=== PATIENT | female | born 1995 | race Hispanic/Latino ===

== ENCOUNTER 2022-10-04 12:53 | Inpatient (IN) | payer BC, MEDICAID ==
[~2022-10-04] VITALS: Ht 167.6 cm; Wt 77.9 kg
[2022-10-04 13:29] LABS: APPEARANCE,URINE CLEAR (CLEAR); BILIRUBIN,URINE NEGATIVE (NEGATIVE); COLOR,URINE COLORLESS (YELLOW); GLUCOSE, URINE (UA) NEGATIVE (NEGATIVE); KETONES,URINE NEGATIVE (NEGATIVE); LEUKOCYTE ESTERASE ,URINE NEGATIVE Leu/uL (NEGATIVE); NITRATE,URINE NEGATIVE (NEGATIVE); PROTEIN,URINE NEGATIVE (NEGATIVE); UROBILINOGEN,URINE 0.2 mg/dL (0.2-1.0)
[2022-10-04 13:30] LABS: RBC,URINE 0-1 /HPF (0-1); WBC,URINE 0-1 /HPF (0-1)
[2022-10-04 13:32] LABS: BASOPHILS % (AUTO) 0.5 % (0.0-5.0); EOSINOPHILS % (AUTO) 0.1 % (0.0-8.0); HEMATOCRIT 43.3 % (36-48); LYMPHOCYTES % (AUTO) 13.8 % (21.0-51.0); MEAN CORPUSCULAR HEMOGLOBIN 28.4 pg (27.0-33.0); MEAN CORPUSCULAR HGB CONC 33.3 g/dL (32.0-36.0); MEAN CORPUSCULAR VOLUME 85.4 fL (79-99); MONOCYTES % (AUTO) 3.9 % (3.0-13.0); NEUTROPHILS % (AUTO) 81.5 % (40.0-77.0); PLATELET COUNT (AUTO) 383 K/uL (130-400); RED BLOOD CELL COUNT(AUTO) 5.07 MIL/uL (4.00-5.50); RED CELL DISTRIBUTION WIDTH 12.8 % (11.0-15.5); WHITE BLOOD COUNT (AUTO) 8.5 K/uL (4.8-10.8)
[2022-10-04 13:43] LABS: CARBON DIOXIDE 24 mmol/L (21-32); CHLORIDE 105 mmol/L (101-111); CREATININE 0.9 mg/dL (0.5-1.5); GLOMERULAR FILTR. RATE CALC 89 mL/min (>90); GLUCOSE,RANDOM 110 mg/dL (70-105); SODIUM SERUM 139 mmol/L (136-145); UREA NITROGEN, BLOOD 9 mg/dL (7-18)
[2022-10-04 13:54] LABS: ALANINE AMINOTRANSFERASE 28 U/L (12-78); ALBUMIN 3.8 g/dL (3.5-5.0); ASPARTATE AMINOTRANSFERASE 19 U/L (10-37); CREATINE KINASE, TOTAL 84 U/L (21-232); TOTAL PROTEIN, SERUM 7.7 g/dL (6.0-8.3)
[2022-10-04 13:55] LABS: SALICYLATE < 2.8 mg/dL (2.8-20.0)
[2022-10-04 13:56] LABS: ACETAMINOPHEN 149 mcg/mL (10-30)
[2022-10-04] MEDS ORDERED: PHARMACY COMMUNICATION MISC SCH (14:30)
[2022-10-04] MEDS ORDERED: WATER IV ONE ×4 (15:00→16:00)
[2022-10-04] MEDS ORDERED: ACETYLCYSTEINE IV ONE ×4 (15:00→16:00)
[2022-10-04] MEDS ORDERED: DEXTROSE 5% IV ONE ×4 (15:00→16:00)
[2022-10-04] MEDS ORDERED: ONDANSETRON 4MG INJ IV PRN (15:30)
[2022-10-04] MEDS ORDERED: LACTULOSE 20 GM/30 ML UDCUP PO PRN (15:30)
[2022-10-04] MEDS ORDERED: GUAIFENESIN-DM 200/20 MG 10 ML PO PRN (15:30)
[2022-10-04] MEDS ORDERED: MAG/ALUM/SIMETH 30 ML UDCUP PO PRN (15:30)
[2022-10-04] MEDS ORDERED: DIPHENHYDRAMINE HCL 25 MG CAPSULE PO PRN (15:30)
[2022-10-04 18:21] LABS: AMPHET/METH SCREEN,URINE NEGATIVE (NEGATIVE); BARBITURATE SCREEN, URINE NEGATIVE (NEGATIVE); BENZODIAZEPINES SCREEN,URINE NEGATIVE (NEGATIVE); CANNABINOID SCREEN,URINE NEGATIVE (NEGATIVE); COCAINE SCREEN,URINE NEGATIVE (NEGATIVE); OPIATE SCREEN,URINE NEGATIVE (NEGATIVE); PHENCYCLIDINE SCREEN,URINE NEGATIVE (NEGATIVE)
[2022-10-04 18:26] LABS: INR 0.93 (0.85-1.15); PROTHROMBIN TIME 10.3 SEC (9.6-11.6)
[2022-10-04 18:27] LABS: PARTIAL THROMBOPLASTIN TIME 30.2 SEC (26.3-35.5)
[2022-10-04] MEDS: DEXTROSE 5% IV SCH ×2 (20:43)
[2022-10-04] MEDS: ACETYLCYSTEINE IV SCH ×2 (20:43)
[2022-10-04] MEDS: WATER IV SCH ×2 (20:43)
[2022-10-04] MEDS: FAMOTIDINE 20MG VIAL IV SCH (20:47)
[2022-10-05] MEDS: FAMOTIDINE 20MG VIAL IV SCH ×2 (09:00→20:55)
[2022-10-05 09:12] LABS: BASOPHILS % (AUTO) 0.5 % (0.0-5.0); EOSINOPHILS % (AUTO) 0.6 % (0.0-8.0); HEMATOCRIT 40.8 % (36-48); LYMPHOCYTES % (AUTO) 16.2 % (21.0-51.0); MEAN CORPUSCULAR HEMOGLOBIN 28.5 pg (27.0-33.0); MEAN CORPUSCULAR HGB CONC 33.6 g/dL (32.0-36.0); MEAN CORPUSCULAR VOLUME 84.8 fL (79-99); MONOCYTES % (AUTO) 5.7 % (3.0-13.0); NEUTROPHILS % (AUTO) 76.6 % (40.0-77.0); PLATELET COUNT (AUTO) 337 K/uL (130-400); RED BLOOD CELL COUNT(AUTO) 4.81 MIL/uL (4.00-5.50); RED CELL DISTRIBUTION WIDTH 12.7 % (11.0-15.5); WHITE BLOOD COUNT (AUTO) 7.9 K/uL (4.8-10.8)
[2022-10-05 09:21] LABS: CARBON DIOXIDE 24 mmol/L (21-32); CHLORIDE 104 mmol/L (101-111); CREATININE 0.7 mg/dL (0.5-1.5); GLOMERULAR FILTR. RATE CALC 121 mL/min (>90); GLUCOSE,RANDOM 110 mg/dL (70-105); POTASSIUM 3.9 mmol/L (3.5-5.1); SODIUM SERUM 140 mmol/L (136-145); UREA NITROGEN, BLOOD 6 mg/dL (7-18)
[2022-10-05 09:25] LABS: ALANINE AMINOTRANSFERASE 26 U/L (12-78); ALBUMIN 3.1 g/dL (3.5-5.0); AMMONIA < 10 umol/L (11-32); ASPARTATE AMINOTRANSFERASE 15 U/L (10-37); TOTAL PROTEIN, SERUM 7.1 g/dL (6.0-8.3)
[2022-10-05 09:26] LABS: ACETAMINOPHEN < 1 mcg/mL (10-30)
[2022-10-05 09:27] LABS: INR 0.97 (0.85-1.15); PROTHROMBIN TIME 11.3 SEC (9.6-11.6)
[2022-10-05 09:28] LABS: PARTIAL THROMBOPLASTIN TIME 29.5 SEC (26.3-35.5)
[2022-10-05] MEDS: WATER IV SCH ×2 (12:00)
[2022-10-05] MEDS: ACETYLCYSTEINE IV SCH ×2 (12:00)
[2022-10-05] MEDS: DEXTROSE 5% IV SCH ×2 (12:00)
[2022-10-05 13:05] VITALS: BP 126/78; PULSE 60; RESP 16
[2022-10-05] MEDS ORDERED: 0.9%NACL 1000ML 1,000 ML IV SCH (14:00)
[2022-10-05 16:00] VITALS: BP 133/60; PULSE 59; RESP 18
[2022-10-05 20:00] VITALS: BP 115/68; PULSE 68; RESP 20
[2022-10-06] VITALS: BP 132/73; PULSE 78; RESP 20
[2022-10-06 04:00] VITALS: BP 133/77; PULSE 80; RESP 20
[2022-10-06 05:21] LABS: BASOPHILS % (AUTO) 0.7 % (0.0-5.0); EOSINOPHILS % (AUTO) 2.4 % (0.0-8.0); HEMATOCRIT 40.3 % (36-48); LYMPHOCYTES % (AUTO) 27.8 % (21.0-51.0); MEAN CORPUSCULAR HEMOGLOBIN 28.7 pg (27.0-33.0); MEAN CORPUSCULAR HGB CONC 33.3 g/dL (32.0-36.0); MEAN CORPUSCULAR VOLUME 86.3 fL (79-99); NEUTROPHILS % (AUTO) 61.8 % (40.0-77.0); PLATELET COUNT (AUTO) 323 K/uL (130-400); RED BLOOD CELL COUNT(AUTO) 4.67 MIL/uL (4.00-5.50); RED CELL DISTRIBUTION WIDTH 12.8 % (11.0-15.5); WHITE BLOOD COUNT (AUTO) 7.4 K/uL (4.8-10.8)
[2022-10-06 05:41] LABS: ALBUMIN 3.1 g/dL (3.5-5.0); CREATININE 0.9 mg/dL (0.5-1.5); MAGNESIUM 1.9 mg/dL (1.80-2.40); TOTAL PROTEIN, SERUM 6.8 g/dL (6.0-8.3)
[2022-10-06] MEDS ORDERED: MAGNESIUM 2GM PREMIX 50ML 50 ML IV PRN (07:00)
[2022-10-06] MEDS ORDERED: KETOROLAC 30MG VIAL (30MG/ML) IVP ONE (07:00)
[2022-10-06 08:00] VITALS: BP 128/67; PULSE 59; RESP 17
[2022-10-06] MEDS: FAMOTIDINE 20MG VIAL IV SCH (08:56)
[2022-10-06 11:57] VITALS: BP 129/72; PULSE 64; RESP 17
== END 2022-10-06 17:25 | disposition home or self-care (01) | DRG 918 ==
LOC: EDH 12:53 → EDHIP 15:06 → 4DH 10-05 13:05
PROVIDERS: ADMIT Hospitalist; ATTEND Hospitalist
DX: T39.1X2A Poisoning by 4-Aminophenol derivatives, intentional self-harm, initial encounter (principal); F32.A Depression, unspecified; F41.9 Anxiety disorder, unspecified; Z63.0 Problems in relationship with spouse or partner; Y92.89 Other specified places as the place of occurrence of the external cause
CPT/HCPCS: 36415; 71045; 80053; 80305; 81001; 82140; 82550; 83605; 83735; 84703; 85025; 85610; 85730; 93005; G0378; G0481; J0132; J1885; J3475; J3490; J7060; J7070

== ENCOUNTER 2023-03-27 11:05 | Emergency (ER) | payer BC, MEDICAID ==
[~2023-03-27] VITALS: Ht 167.6 cm; Wt 80.7 kg
[2023-03-27 12:03] LABS: RAPID GROUP A STREP negative (NEGATIVE)
[2023-03-27 12:07] LABS: SARS-CoV-2, RNA, NAAT NEGATIVE SARS CoV-2 (NEGATIVE)
[2023-03-27 12:13] LABS: INFLUENZA TYPE A Negative For Type A (NEGATIVE); INFLUENZA TYPE B Negative For Type B (NEGATIVE)
[2023-03-27] MEDS ORDERED: ONDANSETRON 4MG INJ IVP ONE (14:30)
[2023-03-27] MEDS ORDERED: 0.9%NACL 1000ML 1,000 ML IV ONE (14:30)
[2023-03-27] MEDS ORDERED: ACETAMINOPHEN 500 MG TABLET PO ONE (14:30)
[2023-03-27 14:58] LABS: APPEARANCE,URINE CLEAR (CLEAR); BILIRUBIN,URINE NEGATIVE (NEGATIVE); COLOR,URINE LIGHT-YELLOW (YELLOW); GLUCOSE, URINE (UA) NEGATIVE (NEGATIVE); KETONES,URINE NEGATIVE (NEGATIVE); LEUKOCYTE ESTERASE ,URINE NEGATIVE Leu/uL (NEGATIVE); NITRATE,URINE NEGATIVE (NEGATIVE); OCCULT BLOOD,URINE NEGATIVE (NEGATIVE); PH,URINE 5.5 (5.0-8.0); PROTEIN,URINE 10 mg/dL (NEGATIVE); UROBILINOGEN,URINE 0.2 mg/dL (0.2-1.0)
[2023-03-27 14:59] LABS: ADD UA MICROSCOPIC YES
[2023-03-27 15:00] LABS: BACTERIA,URINE RARE /HPF (None Seen); HCG,QUALITATIVE URINE NEGATIVE (NEGATIVE); MUCUS,URINE RARE LPF (None Seen); SQUAMOUS EPITHELIAL CELL,UR RARE /HPF (0-2)
[2023-03-27 15:15] LABS: BASOPHILS # (AUTO) 0.02 K/uL (0.00-0.20); BASOPHILS % (AUTO) 0.2 % (0.0-5.0); EOSINOPHILS # (AUTO) 0.02 K/uL (0.00-0.70); EOSINOPHILS % (AUTO) 0.2 % (0.0-8.0); HEMATOCRIT 43.3 % (36-48); IMMATURE GRANULOCYTE ABSOLUTE 0.03 K/uL (0-1); LYMPHOCYTES % (AUTO) 9.6 % (21.0-51.0); MEAN CORPUSCULAR HEMOGLOBIN 28.2 pg (27.0-33.0); MEAN CORPUSCULAR HGB CONC 33.7 g/dL (32.0-36.0); MEAN CORPUSCULAR VOLUME 83.6 fL (79-99); MONOCYTES # (AUTO) 0.6 K/uL (0.1-1.0); MONOCYTES % (AUTO) 5.8 % (3.0-13.0); NEUTROPHILS # (AUTO) 8.5 K/uL (1.8-7.7); NEUTROPHILS % (AUTO) 83.9 % (40.0-77.0); PLATELET COUNT (AUTO) 322 K/uL (130-400); RED BLOOD CELL COUNT(AUTO) 5.18 MIL/uL (4.00-5.50); RED CELL DISTRIBUTION WIDTH 12.4 % (11.0-15.5); WHITE BLOOD COUNT (AUTO) 10.1 K/uL (4.8-10.8)
[2023-03-27 15:38] LABS: CREATININE 0.9 mg/dL (0.5-1.5); POTASSIUM 3.4 mmol/L (3.5-5.1)
[2023-03-27 15:40] LABS: ALBUMIN 3.5 g/dL (3.5-5.0); BILIRUBIN,TOTAL 0.4 mg/dL (0.2-1.0); TOTAL PROTEIN, SERUM 7.7 g/dL (6.0-8.3)
[2023-03-27] MEDS ORDERED: DICY20TA2 PO (16:40)
[2023-03-27] MEDS ORDERED: ONDA4TAB10 PO (16:40)
[2023-03-27 17:00] VITALS: TEMP 99.3
[2023-03-27] MEDS ORDERED: POTASSIUM BICARB/CIT AC 25 MEQ TABLET.EFF PO ONE (17:00)
[2023-03-27 17:01] VITALS: BP 124/60; PULSE 92; RESP 16; O2SAT 99
== END 2023-03-27 17:06 | disposition home or self-care (01) ==
LOC: EDH 11:05
DX: K52.9 Noninfective gastroenteritis and colitis, unspecified (principal); R50.9 Fever, unspecified; M79.10 Myalgia, unspecified site; E87.6 Hypokalemia; Z79.899 Other long term (current) drug therapy
CPT/HCPCS: 99284; 74176; 96374; 87635; 96361; 82150; 80053; 83690; 85025; 87880; 87804 ×2; 83605; 81001; 81025; 36415; J7030; J2405

== ENCOUNTER 2024-06-21 16:20 | Emergency (ER) | payer BC, OTHER ==
[~2024-06-21] VITALS: Ht 167.6 cm; Wt 77.1 kg
[~2024-06-21 16:20] MED LIST: DICY20TA2 PO; ONDA-243 PO
--- NOTE | 2024-06-21 17:17 | ERN ---
ED Note History of Present Illness Stated Complaint: LOWER BACK PAIN Chief Complaint: Low Back Pain/Injury Time Seen by MD: 16:22 Time Seen by Midlevel: 16:22 Dictation: 29-year-old female presents to the ED for evaluation or back and suprapubic abdominal pain. Patient reports she took an at home test recently and tested positive. Has not gone to go see her OBGYN. . Denies vaginal bleeding, nausea, vomiting. Denies any falls, trauma, lifting injury. Denies any dysuria, hematuria. Allergies: Coded Allergies: No Known Allergies (Unverified Allergy, Unknown, 10/04/22) Home Meds Active Scripts Dicyclomine HCl (Bentyl) 20 Mg Tab, 20 MG PO TID PRN for ABDOMINAL PAIN, #12 TAB 0 Refills Prov:JUDIE MCCANNP 03/27/23 Ondansetron (Ondansetron Odt) 4 Mg Tab.rapdis, 4 MG PO Q6HPRN PRN for nausea, #12 TAB 0 Refills Prov:JUDIE MCCANN [facility] 03/27/23 Past Medical History Past Medical History: No Pertinent History Surgical History: None RN Note Reviewed/Agreed w/PFSH: Yes Review of System Dictation Constitutional: Negative for fever,chills, and weight loss Eyes: Negative for injury, pain,redness, and discharge ENT: Negative for injury,pain or swelling Cardiovascular: Negative for chest pain, palpitations, and edema Respiratory: Negative for shortness of breath, cough, and wheezing, Abdomen/GI: Negative for abdominal pain, nausea, vomiting, diarrhea, and constipation Back: Negative for injury and pain : Negative for injury, bleeding and discharge MS/Extremity: Negative for injury and deformity Skin: Negative for rash, and discoloration Neuro: Negative for headache, weakness, numbness, tingling, and seizure Psych: Negative for suicide ideation, homicidal ideation, and hallucinations Review of Systems: was completed Initial Vital Sign VS Vital Signs Date Time Temp Pulse Resp B/P (MAP) Pulse Ox O2 Delivery O2 Flow Rate FiO2 06/21/24 17:19 98.2 66 16 123/73 98 Room Air 0 06/21/24 19:00 21 Physical Exam Dictation General: awake, alert, NAD Head/Face: Normocephalic, atraumatic Eyes: PERRL, EOMI, vision at baseline ENT: oral cavity clear, TMs clear, no signs of infection Neck: Trachea midline, supple, no nuchal rigidity Cardiovascular: RRR, normal S1/S2, No MRGs, no JVD Respiratory: CTAB, no respiratory distress, No rales or wheezes Abdomen: Soft, non-tender, non-distended, normal bowel sounds, no guarding or rebound. Skin: Warm, dry, normal turgor, no rash MS/Extremity: Pulses equal, no cyanosis, neurovascular intact, FROM Neuro: COAx4, GCS 15, strength 5/5, CN 2-12 intact, normal cerebellar exam, normal gait, Psych: Normal behavior, mood, and affect normal Results (Laboratory/Radiology) Laboratory/Radiology Laboratory Tests Test 06/21/24 17:14 06/21/24 19:28 White Blood Count 10.7 K/uL (4.8-10.8) Red Blood Count 4.61 MIL/uL (4.00-5.50) Hemoglobin 13.3 g/dL (12.0-16.0) Hematocrit 40.0 % (36-48) Mean Corpuscular Volume 86.8 fL (79-99) Mean Corpuscular Hemoglobin 28.9 pg (27.0-33.0) Mean Corpuscular Hemoglobin Concent 33.3 g/dL (32.0-36.0) Red Cell Distribution Width 12.6 % (11.0-15.5) Platelet Count 304 K/uL (130-400) Mean Platelet Volume 10.6 fL (7.5-10.5) H Immature Granulocyte % (Auto) 0.5 % (0-1) Neutrophils (%) (Auto) 77.0 % (40.0-77.0) Lymphocytes (%) (Auto) 16.8 % (21.0-51.0) L Monocytes (%) (Auto) 4.6 % (3.0-13.0) Eosinophils (%) (Auto) 0.7 % (0.0-8.0) Basophils (%) (Auto) 0.4 % (0.0-5.0) Neutrophils # (Auto) 8.3 K/uL (1.8-7.7) H Lymphocytes # (Auto) 1.8 K/uL (1.0-4.8) Monocytes # (Auto) 0.5 K/uL (0.1-1.0) Eosinophils # (Auto) 0.07 K/uL (0.00-0.70) Basophils # (Auto) 0.04 K/uL (0.00-0.20) Absolute Immature Granulocyte (auto 0.05 K/uL (0-1) Nucleated Red Blood Cells 0.0 % (0.0-0.19) Sodium Level 141 mmol/L (136-145) Potassium Level 3.8 mmol/L (3.5-5.1) Chloride Level 101 mmol/L (101-111) Carbon Dioxide Level 25 mmol/L (21-32) Blood Urea Nitrogen 6 mg/dL (7-18) L Creatinine 0.6 mg/dL (0.5-1.0) Glomerular Filtration Rate Calc 124 mL/min (>90) Random Glucose 82 mg/dL (70-105) Total Calcium 9.4 mg/dL (8.5-10.1) Human Chorionic Gonadotropin, Quant 459123 mIU/mL (0-5) H Serum Test, Qualitative POSITIVE (NEGATIVE) H Urine Color COLORLESS (YELLOW) Urine Appearance CLEAR (CLEAR) Urine pH 6.0 (5.0-8.0) Urine Specific [place] 1.005 (1.001-1.031) Urine Protein NEGATIVE mg/dL (NEGATIVE) Urine Glucose (UA) NEGATIVE mg/dL (NEGATIVE) Urine Ketones NEGATIVE mg/dL (NEGATIVE) Urine Occult Blood NEGATIVE (NEGATIVE) Urine Nitrate NEGATIVE (NEGATIVE) Urine Bilirubin NEGATIVE mg/dL (NEGATIVE) Urine Urobilinogen 0.2 mg/dL (0.2-1.0) Urine Leukocyte Esterase NEGATIVE Nica/uL Urine RBC 0-1 /HPF (0-1) Urine WBC 2-5 /HPF (0-1) H Urine Bacteria None /HPF (None Seen) Labs Reviewed?: Yes Ultrasound Comment: REASON: VAGINAL BLEEDING ORDERING PHYSICIAN: HÉCTOR DENSON PROCEDURE: OB <14 - US OB <14 WEEKS ULTRASOUND OF THE PELVIS ULTRASOUND ABD VASCULAR LIMITED INDICATION: Pelvic pain COMPARISONS: None TECHNIQUE: Transabdominal real-time sonographic images were acquired earlier, and subsequently made available for review. FINDINGS: The uterus measures 12.0 x 6.0 x 9.0 cm. The uterus is normal in echotexture and contour. Single live intrauterine gestation corresponds to sonographic gestational age of 9 weeks 3 days based on crown-rump length of 2.6 cm. No abnormal subchorionic hypoechoic area demonstrated. heart rate = 157 BPM. The right ovary measures 3.0 x 2.0 x 3.0 cm. The right ovary is normal in size, shape and echogenicity. No right adnexal masses demonstrated. Color Doppler flow is normal throughout the right ovary. Spectral Doppler analysis demonstrates a normal waveform pattern. The left ovary was not well-demonstrated. No free pelvic fluid demonstrated. IMPRESSION: 1. Single live intrauterine gestation corresponding to sonographic gestational age of 9 weeks 3 days based on crown-rump length, and with heart rate = 157 BPM. 2. No evidence for subchorionic hemorrhage. 3. OLIVIA = 01/21/2025 ED Course ED Course Orders Procedure Category Date Status Time Cbc With Differential LAB 06/21/24 Complete 16:39 Testing, LAB 06/21/24 Complete Serum Hcg 16:39 Hcg,Quantitative LAB 06/21/24 Complete 16:39 Us Ob <14 Weeks US 06/21/24 Resulted 16:39 Lactated Ringers PHA 06/21/24 Complete 1000ml (Lactated 16:39 Basic Metabolic Panel LAB 06/21/24 Complete 16:39 Acetaminophen 500mg PHA 06/21/24 In Process Tab (Tylenol 500mg T 16:39 Urinalysis LAB 06/21/24 Complete W/Microscopic 18:33 Current Medications Medications (Trade) Dose Ordered Sig/Leland Route PRN Reason Start Time Stop Time Status Last Admin Dose Admin Acetaminophen (TYLenol 500MG TAB) 500 mg ONCE PO 06/21/24 16:39 06/21/24 21:30 06/21/24 19:29 Lactated Ringer's 1,000 ml @ 0 mls/hr Q0M STAT IV 06/21/24 16:39 06/21/24 17:02 DC 06/21/24 19:26 Vital Signs Date Time Temp Pulse Resp B/P (MAP) Pulse Ox O2 Delivery O2 Flow Rate FiO2 06/21/24 19:00 98.2 79 16 124/69 98 Room Air* 0 21 06/21/24 17:19 98.2 66 16 123/73 98 Room Air 0 Medical Decision Making MDM MDM: Differential diagnosis: Abdominal pain , back pain , ectopic , ovarian cyst, UTI Need for hospitalization: Patient does meet criteria for hospitalization. Need for emergency major/minor surgery: No I independently interpreted the test that were performed, results were reviewed by me and considered findings on radiology if ordered. Medical management and examination interpretation discussions were had by me with other qualified healthcare professionals as indicated for the patient's care. 29-year-old female presents to the ED for evaluation or back and suprapubic abdominal pain. Patient reports she took an at home test recently and tested positive. Has not gone to go see her OBGYN. . Denies vaginal bleeding, nausea, vomiting. Denies any falls, trauma, lifting injury. Denies any dysuria, hematuria. No palpated tenderness on physical examination. No leukocytosis, anemia. No electrolyte abnormalities.. HCG 103,336. Ultrasound shows single live intrauterine corresponding of brown gestational age of nine weeks three days with a heart rate of 157. No evidence of subchorionic hemorrhage. UA not consistent with UTI. Patient will be discharged home in stable condition recommended follow up with OBGYN. DX & DISP Disposition: Discharge Departure Impression: Primary Impression: Abdominal pain during in first trimester Condition: Stable Additional Instructions: DISCHARGE HOME. REST. FOLLOW UP WITH PRIMARY CARE DRRia IN 24 HOURS. RETURN TO THE ER FOR ANY ACUTE CHANGE. PATIENT WAS ALSO ADVISED TO FOLLOW-UP WITH PRIMARY CARE PHYSICIAN IN 1 TO 2 DAYS FOR CONTINUED MONITORING. ALL INSTRUCTIONS WERE GIVEN TO [place]AYMANS TERM AND PATIENT AGREEABLE TO DISCHARGE AND PROPER FOLLOW-UP. Referrals: NONE (PCP) I have reviewed the case, and I agree with, Diagnosis and Plan HÉCTOR DENSON Jun 21, 2024 17:17
[2024-06-21 17:32] LABS: BASOPHILS # (AUTO) 0.04 K/uL (0.00-0.20); BASOPHILS % (AUTO) 0.4 % (0.0-5.0); EOSINOPHILS # (AUTO) 0.07 K/uL (0.00-0.70); EOSINOPHILS % (AUTO) 0.7 % (0.0-8.0); IMMATURE GRANULOCYTE ABSOLUTE 0.05 K/uL (0-1); LYMPHOCYTES # (AUTO) 1.8 K/uL (1.0-4.8); LYMPHOCYTES % (AUTO) 16.8 % (21.0-51.0); MEAN CORPUSCULAR HEMOGLOBIN 28.9 pg (27.0-33.0); MEAN CORPUSCULAR HGB CONC 33.3 g/dL (32.0-36.0); MEAN CORPUSCULAR VOLUME 86.8 fL (79-99); MONOCYTES # (AUTO) 0.5 K/uL (0.1-1.0); MONOCYTES % (AUTO) 4.6 % (3.0-13.0); NEUTROPHILS # (AUTO) 8.3 K/uL (1.8-7.7); PLATELET COUNT (AUTO) 304 K/uL (130-400); RED BLOOD CELL COUNT(AUTO) 4.61 MIL/uL (4.00-5.50); RED CELL DISTRIBUTION WIDTH 12.6 % (11.0-15.5); WHITE BLOOD COUNT (AUTO) 10.7 K/uL (4.8-10.8)
[2024-06-21 17:45] LABS: CREATININE 0.6 mg/dL (0.5-1.0); POTASSIUM 3.8 mmol/L (3.5-5.1)
--- NOTE | 2024-06-21 18:52 | HMCIMG ---
ULTRASOUND OF THE PELVIS ULTRASOUND ABD VASCULAR LIMITED INDICATION: Pelvic pain COMPARISONS: None TECHNIQUE: Transabdominal real-time sonographic images were acquired earlier, and subsequently made available for review. FINDINGS: The uterus measures 12.0 x 6.0 x 9.0 cm. The uterus is normal in echotexture and contour. Single live intrauterine gestation corresponds to sonographic gestational age of 9 weeks 3 days based on crown-rump length of 2.6 cm. No abnormal subchorionic hypoechoic area demonstrated. heart rate = 157 BPM. The right ovary measures 3.0 x 2.0 x 3.0 cm. The right ovary is normal in size, shape and echogenicity. No right adnexal masses demonstrated. Color Doppler flow is normal throughout the right ovary. Spectral Doppler analysis demonstrates a normal waveform pattern. The left ovary was not well-demonstrated. No free pelvic fluid demonstrated. IMPRESSION: 1. Single live intrauterine gestation corresponding to sonographic gestational age of 9 weeks 3 days based on crown-rump length, and with heart rate = 157 BPM. 2. No evidence for subchorionic hemorrhage. 3. OLIVIA = 01/21/2025
[2024-06-21] MEDS: LACTATED RINGERS 1000ML 1,000 ML IV STA (19:26)
[2024-06-21] MEDS: acetaMINOPHEN 500 MG TABLET PO SCH (19:26)
[2024-06-21 19:49] LABS: APPEARANCE,URINE CLEAR (CLEAR); BILIRUBIN,URINE NEGATIVE (NEGATIVE); COLOR,URINE COLORLESS (YELLOW); GLUCOSE, URINE (UA) NEGATIVE (NEGATIVE); KETONES,URINE NEGATIVE (NEGATIVE); LEUKOCYTE ESTERASE ,URINE NEGATIVE Leu/uL (NEGATIVE); NITRATE,URINE NEGATIVE (NEGATIVE); OCCULT BLOOD,URINE NEGATIVE (NEGATIVE); PROTEIN,URINE NEGATIVE (NEGATIVE); UROBILINOGEN,URINE 0.2 mg/dL (0.2-1.0)
[2024-06-21 19:51] LABS: RBC,URINE 0-1 /HPF (0-1)
[2024-06-21 20:14] VITALS: BP 122/71; PULSE 75; RESP 18; TEMP 98.6; O2SAT 99
== END 2024-06-21 20:15 | disposition home or self-care (01) ==
LOC: EDH 16:20
DX: O26.891 Other specified pregnancy related conditions, first trimester (principal); R10.2 Pelvic and perineal pain; Z3A.09 9 weeks gestation of pregnancy; Z79.899 Other long term (current) drug therapy
CPT/HCPCS: 99284; 76801; 80048; 84703; 84702; 85025; 81001; 36415; J7120